=== PATIENT | male | born 1980 ===

== ENCOUNTER 2025-05-07 15:46 | Outpatient (CLI) | payer OTHER, SELFPAY | END 2025-05-07 15:47 | disposition home or self-care (01) | PROVIDERS: PCP Internal Medicine; Visit Provider Internal Medicine | DX: R03.0 Elevated blood-pressure reading, without diagnosis of hypertension (principal); R53.83 Other fatigue | CPT/HCPCS: 80053; 80061 ==

== ENCOUNTER 2025-05-20 09:15 | Outpatient (CLI) | payer OTHER, SELFPAY | END 2025-05-20 09:16 | disposition home or self-care (01) | LOC: NFLDREF 09:16 | PROVIDERS: PCP Internal Medicine; Visit Provider Internal Medicine | DX: R03.0 Elevated blood-pressure reading, without diagnosis of hypertension (principal); R79.89 Other specified abnormal findings of blood chemistry | CPT/HCPCS: 80053 ==